=== PATIENT | female | born 1985 | race Caucasian/White ===

== ENCOUNTER 2021-05-02 19:22 | Emergency (ER) | payer OTHER ==
[~2021-05-02] VITALS: Ht 165.1 cm; Wt 66.1 kg
--- NOTE | 2021-05-02 20:22 | NUR ---
PT COMES WITH WITH LIFE LONG FRIEND AT BEDSIDE; PT APPEARS TO BE VERY JITTERY AND CONCERNED BUT COOPERATIVE; PT STATES SHE HAS HIGH ANXIETY AND HAS TAKEN GABAPENTON AND ATIVAN FOR IT BUT FEELS LIKE SHE IS HAVING MORE ANXIETY ATTACKS AND SAYS HER HANDS WERE CRAMPING UP AND STATES SHE DOESN'T WANT TO BE ON A HOLD; STATES SHE IS NOT SUICIDAL BUT THAT SHE NEEDS HELP HANDLING ANXIETY; FRIEND AT BEDSIDE SAYS SHE ERYNNICOLAS NEEDS HELP;
[2021-05-02] MEDS ORDERED: LORazepam 1 MG tablet PO PRN (20:50)
[2021-05-02] MEDS ORDERED: ondansetron 4mg rapidly disintigrating tab PO ONE (21:15)
[2021-05-02] MEDS ORDERED: diphenhydrAMINE 50 mg/ml inj IM ONE (21:35)
[2021-05-02] MEDS ORDERED: haloperidol lactate 5mg/ml inj IM ONE (21:35)
[2021-05-02 22:10] LABS: BASOPHILS # (AUTO) 0.1 X10'3 (0-0.2); BASOPHILS % (AUTO) 1.9 % (0-1); EOSINOPHILS # (AUTO) 0.2 X10'3 (0-0.9); EOSINOPHILS % (AUTO) 5.2 % (0-6); HEMATOCRIT 41.7 % (35.0-45.0); HEMOGLOBIN 14.2 g/dl (12.0-16.0); LYMPHOCYTES # (AUTO) 1.3 X10'3 (1.1-4.8); LYMPHOCYTES % (AUTO) 30.7 % (21-51); MEAN CORPUSCULAR HGB CONC 34.1 g/dL (33.0-36.5); MEAN CORPUSCULAR VOLUME 102.6 FL (78-98); MEAN PLATELET VOLUME 6.8 FL (7.4-10.4); MONOCYTES # (AUTO) 0.3 X10'3 (0-0.9); MONOCYTES % (AUTO) 7.8 % (2-12); NEUTROPHILS # (AUTO) 2.3 X10'3 (1.8-7.7); NEUTROPHILS % (AUTO) 54.4 % (42-75); PLATELET COUNT 406 X10'3 (140-440); RED BLOOD COUNT 4.07 X10'6 (4.20-5.60); RED CELL DISTRIBUTION WIDTH 19.8 % (11.5-14.5); WHITE BLOOD COUNT 4.2 X10'3 (4.5-11.0)
[2021-05-02 22:19] LABS: ALANINE AMINOTRANSFERASE 58 U/L (12-78); ALBUMIN 3.6 G/DL (3.4-5.0); ALBUMIN/GLOBULIN RATIO 0.9 (1.1-1.5); ALKALINE PHOSPHATASE 137 IU/L (46-116); ANION GAP 13 (8-16); ASPARTATE AMINO TRANSFERASE 69 U/L (10-37); BILIRUBIN,TOTAL 0.3 MG/DL (0.1-1.0); BLOOD UREA NITROGEN 5 MG/DL (7-18); BUN/CREATININE RATIO 6.3 (6.6-38.0); CALCIUM 7.5 MG/DL (8.5-10.1); CHLORIDE 103 MMOL/L (99-107); GLUCOSE 109 MG/DL (70-104); POTASSIUM 3.1 MMOL/L (3.5-5.1); SODIUM 143 MMOL/L (135-145); TOTAL CARBON DIOXIDE 27.2 MMOL/L (24-32); TOTAL PROTEIN 7.7 G/DL (6.4-8.2); eGFR 82 ML/MIN
[2021-05-02 22:31] LABS: ETHANOL 0.366 GM/DL (0.0-0.010)
--- NOTE | 2021-05-02 22:36 | NUR ---
PT HAS IS SHOWING S/SX OF MANIC BUT IS WILLING TO GET HELP; PT HAS FINALLY AGREED THAT SHE WILL ACCEPT MEDICATION TO HELP HER CALM DOWN AND SEE PSYCHOLOGIST IN THE MORNING; PT STATES "JUST HURRY UP AND GET IT OVER WITH" AND PUT HER RIGHT LEG OUT. PT'S SON STATES THAT SHE WAS VERY PHYSICAL WITH THEIR SISTER EARLIER, AND HE "WANTS HIS MOM BACK HOW SHE USED TO BE". MEDICATIONS HAVE NOW BEEN ADMINISTERED AND PT IS STILL YELLING AND MAD ABOUT THIS SITUATION CURRENTLY IN DIRECT SITE OF NURSING STATION FOR MONITORING.
[2021-05-02 22:40] LABS: ANISOCYTOSIS 2+; PLATELET ESTIMATE NORMAL
[2021-05-02] MEDS ORDERED: potassium Cl 20 mEq SR tablet PO PRN (22:55)
[2021-05-02 23:19] LABS: MAGNESIUM 2.3 MG/DL (1.5-2.4)
--- NOTE | 2021-05-02 23:26 | NUR ---
Guillermo: [phone] (SON) lin [phone](friend)
--- NOTE | 2021-05-03 00:05 | NUR ---
PT RESTING COMFORTABLY; PT HAS BEEN PLACED ON 5150 PER PO FROM [facility].
--- NOTE | 2021-05-03 04:16 | NUR ---
PATIENT'S PACKET WAS SENT TO [facility].
[2021-05-03 05:22] VITALS: BP 124/67
[2021-05-03 08:20] LABS: URINE HCG NEGATIVE (NEG)
[2021-05-03 08:22] LABS: CLARITY,URINE CLEAR (Clear); COLOR,URINE YELLOW (Yellow); GLUCOSE, URINE NEGATIVE (Neg); KETONES,URINE NEGATIVE (Neg); LEUKOCYTE ESTERASE ,URINE NEGATIVE (Neg); NITRITES, URINE NEGATIVE (Neg); OCCULT BLOOD,URINE TRACE-LYSED (Neg); PH,URINE 7.5 (4.8-8.0); PROTEIN,URINE NEGATIVE (Neg); UA COLLECTION TYPE CLN CATCH MIDSTREAM; UROBILINOGEN,URINE 0.2 E.U/dL (0.2-1.0)
[2021-05-03 08:27] LABS: RBC,URINE 0-2 /HPF (0-2); WBC,URINE 0-4 /HPF (0-4)
[2021-05-03 08:28] LABS: BACTERIA,URINE NONE SEEN /HPF (Neg); MUCUS STRANDS NONE SEEN /LPF (Neg); SQUAMOUS EPITHELIAL CELL,UR NONE SEEN /LPF (FEW)
[2021-05-03 08:37] LABS: URINE AMPHETAMINE SCREEN NEGATIVE (Neg); URINE BARBITUATE SCREEN NEGATIVE (Neg); URINE BENZODIAZEPINES SCREEN NEGATIVE (Neg); URINE CANNABINOID SCREEN NEGATIVE (Neg); URINE COCAINE SCREEN NEGATIVE (Neg); URINE METHADONE SCREEN NEGATIVE (Neg); URINE OPIATE SCREEN NEGATIVE (Neg); URINE PHENCYCLIDINE SCREEN NEGATIVE (Neg)
== END 2021-05-03 10:23 ==
LOC: EEVIPCON 19:23 → ER 19:23
DX: S40.021A Contusion of right upper arm, initial encounter (principal); Z20.822 Contact with and (suspected) exposure to COVID-19; F10.129 Alcohol abuse with intoxication, unspecified; Z88.0 Allergy status to penicillin; Z72.89 Other problems related to lifestyle; Y90.8 Blood alcohol level of 240 mg/100 ml or more; X58.XXXA Exposure to other specified factors, initial encounter; Y93.89 Activity, other specified; Y92.89 Other specified places as the place of occurrence of the external cause; Y99.8 Other external cause status
CPT/HCPCS: 36415; 80053; 80305; 80320; 81001; 81025; 83735; 84443; 85008; 85025; 87635; 96372; 99285; C9803; J1200; J1630